=== PATIENT | male | born 1990 | race Caucasian/White ===

== ENCOUNTER → 2017-05-02 | Outpatient (CLI) | payer OTHER | LOC: CIMAGING 11:37 | PROVIDERS: ATTEND Physical Medicine & Rehabilitation | DX: M25.551 Pain in right hip (principal); S32.301A Unspecified fracture of right ilium, initial encounter for closed fracture; S32.601A Unspecified fracture of right ischium, initial encounter for closed fracture; S32.511A Fracture of superior rim of right pubis, initial encounter for closed fracture | CPT/HCPCS: 72192-PO ==